=== PATIENT | female | born 1970 | race African-American/Black ===

== ENCOUNTER 2016-04-08 13:29 | Emergency (ER) | payer OTHER ==
[~2016-04-08] VITALS: Ht 170.2 cm; Wt 122.5 kg
--- NOTE | ~2016-04-08 | EKG ---
[address] [address] ELECTROCARDIOGRAM REPORT Name: SAL HUSAIN Room #: DEP [facility]#: [id number] Admission: 04/08/16 Attend Phys: Discharge: 04/08/16 Date of : 74 Report #: [id number] THIS REPORT FOR: //name// [facility] ED Test Date: 2016-04-08 Test Time: 13:38:45 Pat Name: SAL HUSAIN Department: Room: Gender: F Rn Staff: Eugenia BRYANT : 1970 Requested By: Bradly Marroquin Order Number: [id number] MD: Jose Allison Measurements Intervals [place] Rate: 107 P: 47 PA: 155 QRS: 46 QRSD: 97 T: 26 QT: 358 QTc: 478 Interpretive Statements Sinus tachycardia Probable left atrial enlargement Compared to ECG 02/14/2016 14:16:14 No significant changes Electronically Signed On 04-08-2016 16:44:35 RN ONCOLOGY by Jose Allison [email or web address] <ELECTRONICALLY SIGNED> By: Jose Allison MD 04/08/16 1644 1338 1338 MD CRUZ Spencer
[~2016-04-08 13:29] MED LIST: CARVEDILOL12.5 MG PO; COZAAR 50 MG TA50 M2 PO; CYCLOBENZAPRINE5 MG PO; IBUPROFEN 600600 M1 PO; LEXAPRO5 MG PO; LISINOPRIL10 MG PO; METFORMIN HCL500 MG PO; NAPROSYN500 MG PO; NORFLEX100 MG PO; NORVASC5 MG PO; POTASSIUM20 PO; TRAMADOL 50 MG50 MG PO
[2016-04-08] MEDS ORDERED: AMLODIPINE BESY10 MG PO (13:51)
[2016-04-08] MEDS ORDERED: TOPROL XL25 MG PO (13:52)
[2016-04-08] MEDS ORDERED: LOSARTAN POTAS100 MG PO (13:52)
[2016-04-08 14:26] LABS: ABSOLUTE NEUTROPHILS 6.2 thou/uL (1.4-8.2); BASOPHILS 0.8 % (0.0-2.0); EOSINOPHILS 5.5 % (0.0-3.0); HEMATOCRIT 33.8 % (37.0-47.0); HEMOGLOBIN 10.4 gm/dL (12.0-15.0); LYMPHOCYTES 24.4 % (24.0-44.0); MCH 21.1 pg (26.0-34.0); MCHC 30.9 % (28.0-37.0); MCV 68.2 fL (80.0-100.0); MONOCYTES 8.8 % (1.0-8.0); PLATELET COUNT 308 thou/uL (150-400); POLYS 60.5 % (36.0-66.0); RBC 4.95 mil/uL (4.20-5.00); RDW 18.1 % (10.5-14.5); WBC 10.3 thou/uL (4.0-11.0)
[2016-04-08 14:28] LABS: MANUAL DIFF NO
[2016-04-08 14:31] LABS: ANION GAP 9 mmol/L (7-16); BUN 12 mg/dL (7-18); CALCIUM 9.1 mg/dL (8.5-10.1); CHLORIDE 102 mmol/L (98-107); CO2 28 mmol/L (21-32); CREATININE 0.9 mg/dL (0.6-1.3); GLUCOSE 93 mg/dL (70-99); POTASSIUM 3.6 mmol/L (3.5-5.1); SODIUM 139 mmol/L (136-145)
[2016-04-08 14:41] LABS: INR 1.1; PROTIME 11.2 Seconds (9.3-11.4)
[2016-04-08 14:43] LABS: ANISOCYTOSIS 1+
[2016-04-08 14:44] LABS: MICROCYTES 1+
[2016-04-08 14:49] LABS: ALBUMIN 4.2 g/dL (3.4-5.0); ALKALINE PHOSPHATASE 95 U/L (46-116); CK-MB MASS 1.1 ng/mL (<0.5-3.6); MAGNESIUM 1.8 mg/dL (1.8-2.4); NT-PRO BRAIN NAT PEPTIDE 250 pg/mL (<300); SGOT 15 U/L (15-37); SGPT 18 U/L (30-65); TOTAL BILIRUBIN 0.4 mg/dL (<0.1-1.0); TOTAL PROTEIN 8.8 g/dL (6.4-8.2); TROPONIN-I < 0.04 ng/mL (<0.04-0.07)
[2016-04-08] MEDS ORDERED: ZPAK PO (15:14)
[2016-04-08 16:15] VITALS: BP 155/95
[2016-04-27] MEDS ORDERED: MOBIC7.5 MG PO (23:58)
[2016-05-12] MEDS ORDERED: CLONIDINE HCL0.1 MG PO (00:33)
[2016-05-12] MEDS ORDERED: ROBAXIN500 MG PO (02:26)
[2016-05-18] MEDS ORDERED: MOBIC7.5 MG PO (09:26)
== END 2016-04-08 16:16 | disposition home or self-care (01) ==
LOC: ER 13:29
PROVIDERS: Emergency Medicine
DX: J06.9 Acute upper respiratory infection, unspecified (principal); R07.89 Other chest pain; I10 Essential (primary) hypertension; E66.9 Obesity, unspecified; Z91.14 Patient's other noncompliance with medication regimen; E11.9 Type 2 diabetes mellitus without complications; Z88.8 Allergy status to other drugs, medicaments and biological substances; F10.99 Alcohol use, unspecified with unspecified alcohol-induced disorder

== ENCOUNTER 2016-04-11 00:43 | Emergency (ER) | payer OTHER ==
[~2016-04-11] VITALS: Ht 162.6 cm; Wt 122.5 kg
--- NOTE | ~2016-04-11 | EKG ---
[address] [address] ELECTROCARDIOGRAM REPORT Name: SAL HUSAIN SONALI Room #: DEP [facility]#: [id number] Admission: 04/11/16 Attend Phys: Discharge: 04/11/16 Date of : 74 Report #: [id number] THIS REPORT FOR: //name// [facility] ED Test Date: 2016-04-11 Test Time: 00:47:18 Pat Name: SAL HUSAIN Department: Room: Gender: F Director Of Global Marketing: JAYASHREE : 1970 Requested By: Marizol Blanco Order Number: [id number] MD: Reji Mccallum Measurements Intervals [place] Rate: 80 P: 30 VA: 176 QRS: 32 QRSD: 103 T: 44 QT: 400 QTc: 462 Interpretive Statements Sinus rhythm No significant abnormality Compared to ECG 04/08/2016 13:38:45 Sinus tachycardia no longer present Electronically Signed On 04-11-2016 7:53:01 DUDE RANCH MANAGER by Reji Mccallum [email or web address] <ELECTRONICALLY SIGNED> By: Reji Mccallum MD, [facility] 04/11/16 0753 Reji Mccallum MD, FAC /EPI
[~2016-04-11 00:43] MED LIST changes: +AMLODIPINE BESY10 MG PO; +LOSARTAN POTAS100 MG PO; +TOPROL XL25 MG PO; +ZPAK PO
[2016-04-11 01:03] LABS: HEMOGLOBIN 9.6 gm/dL (12.0-15.0)
[2016-04-11 01:06] LABS: ABSOLUTE NEUTROPHILS 5.4 thou/uL (1.4-8.2); BASOPHILS 0.9 % (0.0-2.0); EOSINOPHILS 3.2 % (0.0-3.0); HEMATOCRIT 31.2 % (37.0-47.0); LYMPHOCYTES 35.4 % (24.0-44.0); MCH 21.4 pg (26.0-34.0); MCHC 30.8 % (28.0-37.0); MCV 69.5 fL (80.0-100.0); MONOCYTES 7.9 % (1.0-8.0); PLATELET COUNT 306 thou/uL (150-400); POLYS 52.6 % (36.0-66.0); RBC 4.48 mil/uL (4.20-5.00); RDW 18.4 % (10.5-14.5); WBC 10.2 thou/uL (4.0-11.0)
[2016-04-11 01:11] LABS: APTT 20.8 Seconds (24.5-32.8); INR 1.1; PROTIME 11.4 Seconds (9.3-11.4)
[2016-04-11 01:12] LABS: MANUAL DIFF NO
[2016-04-11 01:22] LABS: ANION GAP 7 mmol/L (7-16); BUN 19 mg/dL (7-18); CALCIUM 8.4 mg/dL (8.5-10.1); CHLORIDE 104 mmol/L (98-107); CO2 29 mmol/L (21-32); CREATININE 1.1 mg/dL (0.6-1.3); GLUCOSE 134 mg/dL (70-99); POTASSIUM 3.3 mmol/L (3.5-5.1); SODIUM 140 mmol/L (136-145)
[2016-04-11 01:32] LABS: ALBUMIN 3.7 g/dL (3.4-5.0); ALKALINE PHOSPHATASE 84 U/L (46-116); NT-PRO BRAIN NAT PEPTIDE 59 pg/mL (<300); SGOT 12 U/L (15-37); SGPT 19 U/L (30-65); TOTAL BILIRUBIN 0.3 mg/dL (<0.1-1.0); TOTAL PROTEIN 8.1 g/dL (6.4-8.2); TROPONIN-I < 0.04 ng/mL (<0.04-0.07)
[2016-04-11 02:30] VITALS: BP 143/87
[2016-04-27] MEDS ORDERED: MOBIC7.5 MG PO (23:58)
[2016-05-12] MEDS ORDERED: CLONIDINE HCL0.1 MG PO (00:33)
[2016-05-12] MEDS ORDERED: ROBAXIN500 MG PO (02:26)
[2016-05-18] MEDS ORDERED: MOBIC7.5 MG PO (09:26)
== END 2016-04-11 02:31 | disposition home or self-care (01) ==
LOC: ER 00:43
PROVIDERS: Emergency Medicine
DX: R07.89 Other chest pain (principal); M79.622 Pain in left upper arm; I10 Essential (primary) hypertension; E11.9 Type 2 diabetes mellitus without complications; F10.99 Alcohol use, unspecified with unspecified alcohol-induced disorder; Z88.8 Allergy status to other drugs, medicaments and biological substances

== ENCOUNTER 2016-04-14 07:30 | Emergency (ER) | payer OTHER ==
[~2016-04-14] VITALS: Ht 170.2 cm; Wt 117.9 kg
--- NOTE | ~2016-04-14 | EKG ---
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: GUERLINE : 1970 Requested By: Andra Aleman Order Number: [id number] MD: Jacek Valiente Measurements Intervals [place] Rate: 109 P: 50 DE: 160 QRS: 43 QRSD: 100 T: 21 QT: 346 QTc: 467 Interpretive Statements Sinus tachycardia Probable left atrial enlargement Baseline wander in lead(s) II,aVF Compared to ECG 04/11/2016 00:47:18 Sinus rhythm no longer present Electronically Signed On 04-14-2016 14:13:01 HORTICULTURE SUPERVISOR by Jacek Valiente [email or web address] <ELECTRONICALLY SIGNED> By: Jacek Valiente MD 04/14/16 1413 0732 0732 Jacek Valiente MD /EPI
[2016-04-14 08:29] LABS: ABSOLUTE NEUTROPHILS 5.4 thou/uL (1.4-8.2); BASOPHILS 0.6 % (0.0-2.0); EOSINOPHILS 6.9 % (0.0-3.0); HEMATOCRIT 31.3 % (37.0-47.0); HEMOGLOBIN 9.8 gm/dL (12.0-15.0); LYMPHOCYTES 29.2 % (24.0-44.0); MCH 21.4 pg (26.0-34.0); MCHC 31.3 % (28.0-37.0); MCV 68.5 fL (80.0-100.0); MONOCYTES 5.7 % (1.0-8.0); PLATELET COUNT 320 thou/uL (150-400); POLYS 57.6 % (36.0-66.0); RBC 4.57 mil/uL (4.20-5.00); RDW 18.2 % (10.5-14.5); WBC 9.4 thou/uL (4.0-11.0)
[2016-04-14 08:30] LABS: MANUAL DIFF NO
[2016-04-14 08:34] LABS: ANION GAP 9 mmol/L (7-16); BUN 15 mg/dL (7-18); CALCIUM 8.8 mg/dL (8.5-10.1); CHLORIDE 103 mmol/L (98-107); CO2 29 mmol/L (21-32); CREATININE 0.9 mg/dL (0.6-1.3); GLUCOSE 139 mg/dL (70-99); POTASSIUM 3.2 mmol/L (3.5-5.1); SODIUM 141 mmol/L (136-145)
[2016-04-14 08:43] LABS: TROPONIN-I < 0.04 ng/mL (<0.04-0.07)
[2016-04-14 09:25] VITALS: BP 160/106
[2016-04-14 09:33] LABS: ANISOCYTOSIS 1+
[2016-04-14 09:34] LABS: HYPOCHROMASIA 1+
[2016-04-27] MEDS ORDERED: MOBIC7.5 MG PO (23:58)
[2016-05-12] MEDS ORDERED: CLONIDINE HCL0.1 MG PO (00:33)
[2016-05-12] MEDS ORDERED: ROBAXIN500 MG PO (02:26)
[2016-05-18] MEDS ORDERED: MOBIC7.5 MG PO (09:26)
== END 2016-04-14 09:26 | disposition home or self-care (01) ==
LOC: ER 07:30
PROVIDERS: Emergency Medicine
DX: R07.89 Other chest pain (principal); E87.6 Hypokalemia; I10 Essential (primary) hypertension; Z88.8 Allergy status to other drugs, medicaments and biological substances; F10.99 Alcohol use, unspecified with unspecified alcohol-induced disorder

== ENCOUNTER 2016-07-17 07:07 | Emergency (ER) | payer BC, OTHER ==
[~2016-07-17] VITALS: Ht 170.2 cm; Wt 109.8 kg
[~2016-07-17 07:07] MED LIST changes: +CLONIDINE HCL0.1 MG PO; +MOBIC7.5 MG PO; +ROBAXIN500 MG PO
[2016-07-17 07:08] VITALS: BP 148/93
[2016-07-17] MEDS ORDERED: KLOR-CON 1010 MEQ PO (07:14)
[2016-07-17] MEDS ORDERED: ROBAXIN500 MG PO (07:38)
[2016-07-17] MEDS ORDERED: NAPROSYN500 MG PO (07:38)
== END 2016-07-17 07:51 | disposition home or self-care (01) ==
LOC: ER 07:07
DX: M54.6 Pain in thoracic spine (principal); N62 Hypertrophy of breast; M62.830 Muscle spasm of back; I10 Essential (primary) hypertension; E11.9 Type 2 diabetes mellitus without complications; E66.8 Other obesity; Z88.8 Allergy status to other drugs, medicaments and biological substances

== ENCOUNTER 2016-11-28 07:35 | Emergency (ER) | payer OTHER ==
[~2016-11-28] VITALS: Ht 170.2 cm; Wt 112.5 kg
--- NOTE | ~2016-11-28 | EKG ---
[address] [address] ELECTROCARDIOGRAM REPORT Name: SAL HUSAIN SONALI Room #: DEP [facility]#: [id number] Admission: 11/28/16 Attend Phys: Discharge: 11/28/16 Date of : 74 Report #: [id number] THIS REPORT FOR: //name// [facility] ED Test Date: 2016-11-28 Test Time: 08:13:43 Pat Name: SAL HUSAIN Department: Room: Gender: F Coat Checker: NELSON : 1970 Requested By: Jordan Dalal Order Number: [id number] MD: Reji Mccallum Measurements Intervals [place] Rate: 80 P: 15 IN: 159 QRS: 37 QRSD: 101 T: 32 QT: 418 QTc: 483 Interpretive Statements Sinus rhythm No significant abnormality Baseline wander in lead(s) II,III,aVF,V2 Compared to ECG 05/26/2016 05:01:57 No significant changes Electronically Signed On 11-28-2016 17:06:40 CDT by Reji Mccallum [email or web address] <ELECTRONICALLY SIGNED> By: Reji Mccallum MD, [facility] 11/28/16 1706 2 2 Reji Mccallum MD, [facility] /EPI
[~2016-11-28 07:35] MED LIST changes: +KLOR-CON 1010 MEQ PO
[2016-11-28 09:22] LABS: HEMATOCRIT 33.5 % (37.0-47.0); HEMOGLOBIN 10.9 gm/dL (12.0-15.0); MCH 24.4 pg (26.0-34.0); MCHC 32.4 g/dL (28.0-37.0); MCV 75.3 fL (80.0-100.0); RBC 4.45 mil/uL (4.20-5.00); RDW 16.1 % (10.5-14.5); WBC 8.5 thou/uL (4.0-11.0)
[2016-11-28 09:25] LABS: ANION GAP 8 mmol/L (7-16); BUN 14 mg/dL (7-18); CALCIUM 9.5 mg/dL (8.5-10.1); CHLORIDE 104 mmol/L (98-107); CO2 28 mmol/L (21-32); CREATININE 0.9 mg/dL (0.6-1.0); GLUCOSE 129 mg/dL (74-106); POTASSIUM 3.3 mmol/L (3.5-5.1); SODIUM 140 mmol/L (136-145)
[2016-11-28 09:34] LABS: TROPONIN-I < 0.04 ng/mL (<0.04-0.07)
[2016-11-28] MEDS ORDERED: OXYCODONE HCL 55 MG PO (09:58)
[2016-11-28 10:13] VITALS: BP 128/78
== END 2016-11-28 10:13 | disposition home or self-care (01) ==
LOC: ER 07:35
PROVIDERS: Emergency Medicine
DX: M25.511 Pain in right shoulder (principal); I10 Essential (primary) hypertension; E11.9 Type 2 diabetes mellitus without complications; F41.9 Anxiety disorder, unspecified; E66.9 Obesity, unspecified; Z88.8 Allergy status to other drugs, medicaments and biological substances

== ENCOUNTER 2017-04-24 15:55 | Emergency (ER) | payer OTHER ==
[~2017-04-24] VITALS: Ht 170.2 cm; Wt 109.8 kg
--- NOTE | ~2017-04-24 | EKG ---
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
[~2017-04-24 15:55] MED LIST changes: +OXYCODONE HCL 55 MG PO
[2017-04-24] MEDS ORDERED: CLONIDINE0.1 PO (16:15)
[2017-04-24] MEDS ORDERED: LOSARTAN-HCTZ1 EAC2 PO (16:17)
[2017-04-24 16:36] LABS: ABSOLUTE NEUTROPHILS 7.1 thou/uL (1.4-8.2); BASOPHILS 0.8 % (0.0-2.0); EOSINOPHILS 2.9 % (0.0-3.0); HEMATOCRIT 35.9 % (37.0-47.0); HEMOGLOBIN 11.6 gm/dL (12.0-15.0); LYMPHOCYTES 29.3 % (24.0-44.0); MCH 24.7 pg (26.0-34.0); MCHC 32.4 g/dL (28.0-37.0); MCV 76.3 fL (80.0-100.0); MONOCYTES 7.6 % (1.0-8.0); PLATELET COUNT 391 thou/uL (150-400); POLYS 59.4 % (36.0-66.0); RDW 16.9 % (10.5-14.5); WBC 11.9 thou/uL (4.0-11.0)
[2017-04-24 16:46] LABS: CALCIUM 9.4 mg/dL (8.5-10.1); CREATININE 0.9 mg/dL (0.6-1.0); POTASSIUM 3.8 mmol/L (3.5-5.1)
[2017-04-24 16:54] LABS: ALBUMIN 4.2 g/dL (3.4-5.0); DIRECT BILIRUBIN < 0.1 mg/dL (<0.1-0.3); LIPASE 116 U/L (73-393); SGOT 26 U/L (15-37); SGPT 25 U/L (30-65); TOTAL BILIRUBIN 0.4 mg/dL (<0.1-1.0); TOTAL PROTEIN 9.2 g/dL (6.4-8.2); TROPONIN-I < 0.04 ng/mL (<0.06)
[2017-12-03] MEDS ORDERED: MOBIC7.5 MG PO (19:12)
[2017-12-03] MEDS ORDERED: CYCLOBENZAPRINE5 MG PO (19:12)
== END 2017-04-24 20:14 | disposition home or self-care (01) ==
LOC: ER 15:55
PROVIDERS: Emergency Medicine; Physician Assistant
DX: I10 Essential (primary) hypertension (principal); R07.9 Chest pain, unspecified; E11.9 Type 2 diabetes mellitus without complications; F41.9 Anxiety disorder, unspecified; E66.9 Obesity, unspecified; Z68.37 Body mass index [BMI] 37.0-37.9, adult; Z88.8 Allergy status to other drugs, medicaments and biological substances

== ENCOUNTER 2017-08-07 22:08 | Emergency (ER) | payer OTHER ==
[~2017-08-07] VITALS: Ht 170.2 cm; Wt 112.5 kg
--- NOTE | ~2017-08-07 | EKG ---
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: bright : 1970 Requested By: Alyse Collins Order Number: [id number] MD: Reji Mccallum Measurements Intervals [place] Rate: 113 P: 49 ND: 160 QRS: 41 QRSD: 92 T: 9 QT: 348 QTc: 478 Interpretive Statements Sinus tachycardia Otherwise no significant abnormality Compared to ECG 04/24/2017 16:13:14 No significant changes Electronically Signed On 08-08-2017 8:26:40 CDT by Reji Mccallum [email or web address] <ELECTRONICALLY SIGNED> By: Reji Mccallum MD, [facility] 08/08/17 0826 16 16 Reji Mccallum MD, [facility] /EPI
[~2017-08-07 22:08] MED LIST changes: +CLONIDINE0.1 PO; +LOSARTAN-HCTZ1 EAC2 PO
[2017-08-07 22:34] LABS: ABSOLUTE NEUTROPHILS 5.3 thou/uL (1.4-8.2); BASOPHILS 0.9 % (0.0-2.0); EOSINOPHILS 2.6 % (0.0-3.0); HEMATOCRIT 31.8 % (37.0-47.0); HEMOGLOBIN 10.1 gm/dL (12.0-15.0); LYMPHOCYTES 36.7 % (24.0-44.0); MCH 23.9 pg (26.0-34.0); MCHC 31.8 g/dL (28.0-37.0); MCV 75.1 fL (80.0-100.0); MONOCYTES 7.7 % (1.0-8.0); PLATELET COUNT 339 thou/uL (150-400); POLYS 52.1 % (36.0-66.0); RBC 4.23 mil/uL (4.20-5.00); RDW 15.4 % (10.5-14.5); WBC 10.2 thou/uL (4.0-11.0)
[2017-08-07 22:43] LABS: ANION GAP 7 mmol/L (7-16); BUN 11 mg/dL (7-18); CALCIUM 8.8 mg/dL (8.5-10.1); CHLORIDE 104 mmol/L (98-107); CO2 29 mmol/L (21-32); CREATININE 0.9 mg/dL (0.6-1.0); GLUCOSE 144 mg/dL (74-106); POTASSIUM 3.4 mmol/L (3.5-5.1); SODIUM 140 mmol/L (136-145)
[2017-08-07 22:52] LABS: TROPONIN-I < 0.04 ng/mL (<0.06)
[2017-08-08] MEDS ORDERED: MOBIC15 MG PO (01:41)
[2017-08-08 01:56] VITALS: BP 125/92
== END 2017-08-08 01:58 | disposition home or self-care (01) ==
LOC: ER 22:08
PROVIDERS: Emergency Medicine
DX: S46.811A Strain of other muscles, fascia and tendons at shoulder and upper arm level, right arm, initial encounter (principal); R07.9 Chest pain, unspecified; I10 Essential (primary) hypertension; E11.9 Type 2 diabetes mellitus without complications; E66.9 Obesity, unspecified; F41.9 Anxiety disorder, unspecified; Z88.8 Allergy status to other drugs, medicaments and biological substances; Z68.38 Body mass index [BMI] 38.0-38.9, adult; X58.XXXA Exposure to other specified factors, initial encounter; Y93.89 Activity, other specified; Y92.89 Other specified places as the place of occurrence of the external cause; Y99.8 Other external cause status